=== PATIENT | female | born 1960 | race Caucasian/White ===

== ENCOUNTER 2016-12-18 06:46 | Day surgery (SDC) | payer OTHER ==
[2016-12-10 13:07] LABS: BASOPHILS 0.1 %; BASOPHILS ABSOLUTE 0.01 10/3/uL (0.0-0.16); EOSINOPHILS 0.9 %; EOSINOPHILS ABSOLUTE 0.08 10/3/uL (0.0-0.53); HEMATOCRIT 42.8 % (36.0-48.0); HEMOGLOBIN 14.4 g/dL (12.0-16.0); IMMATURE GRANULOCYTES 0.3 %; IMMATURE GRANULOCYTES ABSOLUTE 0.03 10/3/uL (0.0-0.11); LYMPHOCYTES 33.3 %; LYMPHOCYTES ABSOLUTE 2.97 10/3/uL (0.67-4.30); MEAN CORPUS HGB CONC 33.6 g/dL (32.0-36.0); MEAN CORPUSCULAR HEMOGLOB 30.8 pg (26.0-34.0); MEAN CORPUSCULAR VOLUME 91.6 fL (80-100); MEAN PLATELET VOLUME 9.8 fL (9.2-13.0); MONOCYTES 6.8 %; MONOCYTES ABSOLUTE 0.61 10/3/uL (0.21-1.20); NEUTROPHILS 58.6 %; NEUTROPHILS ABSOLUTE 5.21 10/3/uL (2.02-8.40); PLATELET COUNT 238 10/3/uL (150-400); RBC DISTRIBUTION WIDTH 12.5 % (12.0-16.0); RED CELL COUNT 4.67 10/6/uL (4.0-5.6); WHITE BLOOD CELLS 8.9 10/3/uL (4.5-10.5)
[2016-12-10 13:09] LABS: MANUAL DIFF NO %
[2016-12-10 13:25] LABS: A/G RATIO 1.4 (0.7-1.9); ALBUMIN 4.1 G/DL (3.5-5.0); ALKALINE PHOSPHATASE 62 U/L (45-117); BUN (BLOOD UREA NITROGEN) 15 MG/DL (6-23); CALCIUM, SERUM 8.8 MG/DL (8.5-10.4); CHLORIDE, SERUM 106 MMOL/L (96-112); CO2 (CARBON DIOXIDE) 29 MMOL/L (24-34); CREATININE 0.58 MG/DL (0.55-1.02); GFR AFRICAN AMERICAN 118 ML/MIN (>=60); GFR NON AFRICAN AMERICAN 102 ML/MIN (>=60); GLUCOSE, SERUM 88 MG/DL (60-99); POTASSIUM, SERUM 3.9 MMOL/L (3.5-5.3); SGOT(AST) 14 U/L (5-40); SGPT(ALT) 33 U/L (5-65); SODIUM, SERUM 144 MMOL/L (135-148); TOTAL BILIRUBIN 0.3 MG/DL (0-1.2); TOTAL PROTEIN 7.1 G/DL (6.0-8.5)
--- NOTE | ~2016-12-18 | OP ---
Record Of Operation [facility] [address] [place]. [address] NAME: JL CROOKS : 56 STATUS : [facility]#: [id number] AGE: 56 ADM/REG DATE : 12/18/16 MR#: [id number] REPORT SERV DATE: 12/18/16 DICTATED BY: AVA MARTELL DATE: 12/18/16 REPORT STATUS : Draft TRANSCRIBED BY: PAPI DATE: 12/18/16 DATE OF PROCEDURE: PREOPERATIVE DIAGNOSIS: Right breast invasive ductal cancer. POSTOPERATIVE DIAGNOSIS: Right breast invasive ductal cancer. PROCEDURE: Stereotactic wire localization of clip and tumor. INDICATION FOR THE PROCEDURE: Ms. Crooks is a healthy middle-aged female with diagnosis of a very small 5 mm invasive ductal [facility]. She did not have an obvious tumor on exam or ultrasound. Therefore, a wire localization is necessary for segmentectomy today. OPERATIVE FINDINGS: After appropriate consent was noted on the chart, the patient was taken to the stereotactic room and placed on the table in a prone position. The patient did have local anesthetic injected at the site for the wire placement. Her right breast was allowed to fall through the hole in the table and was placed in compression. A preop mammogram have been obtained to ensure that there was in fact the clip in the breast and no obvious distance from the tumor to the clip. The patient does have some very vague asymmetry at the clip site, but no obvious tumor otherwise. The right breast was cleansed, local anesthetic infiltrated in the skin and soft tissue and the needle with wire passed with ease. Images showed the needle tip to be in good position and therefore, the wire was engaged. Needle was removed from the breast and final images noted the wire to be in good position at the clip site. The patient's skin was cleansed, and the wire was secured to the patient's breast, she then went for a mammogram. She tolerated the procedure well with minimal bleeding. Confidence of the procedure is excellent. KENNY/PAPI Ava Martell MD / [id number] CC: MD Matias Woodward Avis D. [facility]
--- NOTE | ~2016-12-18 | OP ---
Record Of Operation [facility] [address] [place]. [address] NAME: JL CROOKS : 56 STATUS : REG [facility]#: [id number] AGE: 56 ADM/REG DATE : 12/18/16 MR#: [id number] REPORT SERV DATE: 12/18/16 DICTATED BY: AVA MARTELL DATE: 12/18/16 REPORT STATUS : Draft TRANSCRIBED BY: PAPI DATE: 12/18/16 DATE OF PROCEDURE: 12/18/2016 PREOPERATIVE DIAGNOSIS: Right breast invasive ductal cancer. POSTOPERATIVE DIAGNOSIS: Right breast invasive ductal cancer. PROCEDURE: 1. Right breast wire localized segmentectomy. 2. Right axillary sentinel lymph node biopsy. INDICATION FOR THE PROCEDURE: Ms. Crooks is a 56-year-old female who was diagnosed with a very small 5 mm invasive ductal cancer, right breast 10 o'clock position at the NM. Showing to be a very low aggression tumor ER OK positive, HER/2 negative, measuring 5 to 10 mm. When I saw the patient in late November, she still had quite a bit of residual hematoma which made it very difficult to see the clip and lesion. She is strongly motivated for breast preservation. We decided on wire localized segmentectomy as there was no visible tumor remaining. The patient did have lymphoscintigraphy scan earlier today. Please also see my dictation for the wire localized biopsy. OPERATIVE FINDINGS: After appropriate consent was noted on the chart, the patient was taken to the operating room in supine position. She was placed under general anesthesia without any complications. The dressing securing the wire was removed and the wire clipped for length. Ultrasound was utilized to visualize the wire and its entrance at the biopsy site. It appears to be sitting directly at the clip. The gamma probe did show good uptake in the right axilla and methylene blue was not utilized. The right chest and breast were prepped and draped in a sterile fashion. An incision was made in a radial fashion at the site of the wire. Sharp dissection carried down to the level of the breast and a flap was created in all directions to take a segment of tissue at the tip of the wire. There was no additional tissue to be taken anteriorly. The specimen was marked with sutures and Pathology did evaluate it for gross margins. It appears the clip was sitting directly in the center of the segmentectomy site but there was only minimal scarring and prior biopsy scar but no significant tumor. He did feel that the biopsy site was close to the lateral margins. I did take in another additional fairly generous lateral to deep margin as this was the area of the coarsest most dense tissue in the breast. That was sent for permanent pathology with marking sutures. The wound was copiously irrigated with warm saline and hemostasis was achieved. Local anesthetic infiltrated in the skin and soft tissue. The skin was closed in two layers of Monocryl and Mastisol and Steri-Strips applied. Right axillary sentinel node was performed in routine fashion. An incision was made at the area of highest uptake which was in the inferior axillary hairline. Sharp dissection carried down to the level of the axillary fat pad and a single sentinel lymph node was taken with an ex-vivo count of 32,000, background count at that point was 16. This lymph node felt nice and soft and was sent for permanent pathology. The wound was copiously Record Of Operation [address] [address] NAME: JL CROOKS : 56 STATUS : REG [facility] PAT#: [id number] AGE: 56 ADM/REG DATE : 12/18/16 MR#: [id number] REPORT SERV DATE: 12/18/16 DICTATED BY: AVA MARTELL DATE: 12/18/16 REPORT STATUS : Draft TRANSCRIBED BY: PAPI DATE: 12/18/16 irrigated with warm saline. Hemostasis was achieved. Local anesthetic infiltrated in the skin and soft tissues and the incision closed in two layers of Monocryl. The skin was cleansed and dried. Mastisol and Steri-Strips applied. A 4x4s and a binder placed on the patient before awakening. The patient was awoken from anesthesia without complication and taken the PACU in stable condition for recovery. All counts were correct at the end of the case. ESTIMATED BLOOD LOSS: 20 mL. COMPLICATIONS: None. SPECIMEN: Right breast 10 o'clock segment, new lateral margin, and right axillary sentinel node x1. KENNY/PAPI Ava Martell MD / [id number] CC: MD AMANDA Woodward [facility]
[~2016-12-18 06:46] MED LIST: CALCIUM/VIT D PO; FOSAMAX35 MG PO; HYDROCHLOROT25 MG PO; IBU800 PO; PRILO PO; PRIN10 PO; ZOCOR20 PO; ZYRTEC ALLGY10 MG PO
== END 2016-12-18 16:30 | disposition home or self-care (01) ==
LOC: SDC 06:46
PROVIDERS: Surgery Surgical Oncology
PROC: 07B50ZX Excision of Right Axillary Lymphatic, Open Approach, Diagnostic (ICD-10-PCS; 2016-12-18)
PROC: BH40ZZZ Ultrasonography of Right Breast (ICD-10-PCS; 2016-12-18)
PROC: 0HBT0ZZ Excision of Right Breast, Open Approach (ICD-10-PCS; principal; 2016-12-18 12:30)
DX: C50.911 Malignant neoplasm of unspecified site of right female breast (principal); I10 Essential (primary) hypertension; E78.00 Pure hypercholesterolemia, unspecified; K21.9 Gastro-esophageal reflux disease without esophagitis; F41.9 Anxiety disorder, unspecified; F32.9 Major depressive disorder, single episode, unspecified; Z79.899 Other long term (current) drug therapy; F17.210 Nicotine dependence, cigarettes, uncomplicated; M19.90 Unspecified osteoarthritis, unspecified site; Z90.89 Acquired absence of other organs; Z98.890 Other specified postprocedural states
CPT/HCPCS: 71020; 78195; 80053; 85025; 88305; 88307; 88341; 88342; 93005; A9541; J0690; J2250; J2370; J2405; J3010